=== PATIENT | male | born 1955 | race Caucasian/White ===

== ENCOUNTER 2022-02-22 02:27 | Emergency (ER) | payer OTHER, SELFPAY ==
[2022-02-22 02:33] VITALS: BP 131/58; PULSE 83; RESP 14; TEMP 35.5; O2SAT 95; BMI 27.4
--- NOTE | 2022-02-22 02:36 | ED_ITS ---
HPI - Overdose <DO Aki White Last Filed: 02/23/22 22:02> General Chief Complaint: Toxicology Problem Stated Complaint: Toxicology Time Seen by Provider: 02/22/22 02:34 Source: EMS Mode of arrival: EMS History of Present Illness HPI Narrative: 67-year-old male nonsmoker without any significant medical history presents by EMS for evaluation of dizziness,, weakness and persistent vomiting. He has on occasion taken THC to help with nausea and vomiting and had accidentally taken a significantly larger dose than he would anticipated tonight. It sounds like he took an entire syringe of a THC concentrate at 73% which medics state is likely 1000 mg. He did this 4 hours prior to his arrival. He has no suicidal or homicidal ideation. He denies any other ingestion. He is guarding his airway, alert and oriented. He has no chest pain or shortness of breath. Related Data Allergies Allergy/AdvReac Type Severity Reaction Status Date / Time Penicillins Allergy Verified 02/22/22 03:54 Review of Systems <DO Aki White Last Filed: 02/23/22 22:02> Review of Systems Narrative: GENERAL: See HPI HEENT: Denies sinus pain, ear pain, sore throat, difficulty swallowing, dizziness. RESPIRATORY: Denies dyspnea, cough, wheezing, hemoptysis, sputum. CARDIOVASCULAR: Denies chest pain, palpitations, orthopnea, edema, GASTROINTESTINAL: See HPI : Denies dysuria, frequency, incontinence, hematuria, urinary retention. MUSCULOSKELETAL: denies weakness, joint pain, or bony pain SKIN: Denies rash, skin lesions, or other NEUROLOGIC: Denies weakness, headache, numbness, change in speech, confusion, seizures, incoordination. PSYCHIATRIC: No concerning psychosocial issues. 12 point review of systems is negative except for those stated above Patient History <DO Aki White Last Filed: 02/23/22 22:02> alcohol intake frequency: holidays/special occasions only Substance Use Type: marijuana Exam <DO Aki White Last Filed: 02/23/22 22:02> Narrative Exam Narrative: GENERAL: [67] year old patient appears stated age. Well-developed patient, in mild distress. Obviously feeling unwell, holding an emesis bag. Sluggish responses though accurate in his answers, regretful, states this is accidental, denies any intent to harm, no difficulty breathing or managing secretions HEAD: Atraumatic. Normocephalic. EYES: Pupils equal round and reactive. Extraocular motions intact. No scleral icterus. No injection or drainage. ENT: Nose without bleeding, purulent drainage. Throat without erythema, tonsillar hypertrophy or exudate. Airway patent. NECK: Trachea midline. Non tender CARDIOVASCULAR: Regular rate and rhythm without murmurs, gallops, or rubs. RESPIRATORY: Clear to auscultation. Breath sounds equal bilaterally. No wheezes, rales, or rhonchi. GASTROINTESTINAL: Abdomen soft, non-tender, nondistended. EXTREMITIES: No edema or joint tenderness. BACK: Nontender without deformity or crepitance. No flank tenderness. NEURO: AOx3. SKIN: No rash or erythema of visible areas Initial Vital Signs Initial Vital Signs: Vital Signs Temperature 96 F L 02/22/22 02:33 Pulse Rate 83 02/22/22 02:33 Respiratory Rate 14 02/22/22 02:33 Blood Pressure 131/58 L 02/22/22 02:33 Pulse Oximetry 95 02/22/22 02:33 Oxygen Delivery Method 02/22/22 02:33 <Liana Hilliard, DO - Last Filed: 02/22/22 08:39> Initial Vital Signs Initial Vital Signs: Vital Signs Temperature 96 F L 02/22/22 02:33 Pulse Rate 83 02/22/22 02:33 Respiratory Rate 14 02/22/22 02:33 Blood Pressure 131/58 L 02/22/22 02:33 Pulse Oximetry 95 02/22/22 02:33 Oxygen Delivery Method 02/22/22 02:33 Course <Maurizio Nolan, DO - Last Filed: 02/23/22 22:02> Orders Ordered: Discontinued Medications Sodium Chloride (Normal Saline 0.9%) 1,000 mls @ 1,000 mls/hr IV BOLUS ONE Stop: 02/22/22 03:33 Last Infusion: 02/22/22 04:57 Dose: 0 mls/hr Documented By: Admin: 02/22/22 02:58 Dose: 1,000 mls/hr Documented By: GERARDO Ondansetron HCl (Ondansetron 4 Mg/2 Ml Inj) 4 mg IV NOW ONE Stop: 02/22/22 02:35 Last Admin: 02/22/22 02:59 Dose: 4 mg Documented By: GERARDO Pantoprazole Sodium (Pantoprazole 40 Mg Vial) 40 mg IV NOW ONE Stop: 02/22/22 03:23 Last Admin: 02/22/22 04:08 Dose: 40 mg Documented By: GERARDO Vital Signs Vital signs: Vital Signs - 8 hr 02/22/22 02:33 02/22/22 02:42 02/22/22 02:56 Temperature 96 F L Pulse Rate 83 78 Respiratory Rate 14 12 Blood Pressure 131/58 L 118/63 Pulse Oximetry 95 95 Oxygen Delivery Method Room Air 02/22/22 02:56 02/22/22 03:00 02/22/22 03:00 Temperature Pulse Rate 75 74 Respiratory Rate 12 13 Blood Pressure 116/64 Pulse Oximetry 98 98 Oxygen Delivery Method 02/22/22 03:30 02/22/22 03:30 Temperature Pulse Rate 79 Respiratory Rate 12 Blood Pressure 128/72 Pulse Oximetry 98 Oxygen Delivery Method <Liana Hilliard, - Last Filed: 02/22/22 08:39> Orders Ordered: Discontinued Medications Sodium Chloride (Normal Saline 0.9%) 1,000 mls @ 1,000 mls/hr IV BOLUS ONE Stop: 02/22/22 03:33 Last Infusion: 02/22/22 04:57 Dose: 0 mls/hr Documented By: Admin: 02/22/22 02:58 Dose: 1,000 mls/hr Documented By: GERARDO Ondansetron HCl (Ondansetron 4 Mg/2 Ml Inj) 4 mg IV NOW ONE Stop: 02/22/22 02:35 Last Admin: 02/22/22 02:59 Dose: 4 mg Documented By: GERARDO Pantoprazole Sodium (Pantoprazole 40 Mg Vial) 40 mg IV NOW ONE Stop: 02/22/22 03:23 Last Admin: 02/22/22 04:08 Dose: 40 mg Documented By: GERARDO Vital Signs Vital signs: Vital Signs - 8 hr 02/22/22 02:33 02/22/22 02:42 02/22/22 02:56 Temperature 96 F L Pulse Rate 83 78 Respiratory Rate 14 12 Blood Pressure 131/58 L 118/63 Pulse Oximetry 95 95 Oxygen Delivery Method Room Air 02/22/22 02:56 02/22/22 03:00 02/22/22 03:00 Temperature Pulse Rate 75 74 Respiratory Rate 12 13 Blood Pressure 116/64 Pulse Oximetry 98 98 Oxygen Delivery Method 02/22/22 03:30 02/22/22 03:30 Temperature Pulse Rate 79 Respiratory Rate 12 Blood Pressure 128/72 Pulse Oximetry 98 Oxygen Delivery Method MDM - Overdose <Maurizio Nolan, - Last Filed: 02/23/22 22:02> Lab Data Result diagrams: 02/22/22 02:45 02/22/22 02:45 Labs: Lab Results 02/22/22 02/22/22 02/22/22 Range/Units 02:45 02:45 03:00 WBC 11.6 H (4.5-11.0) X10^3/uL RBC 4.29 L (4.5-5.9) X10^6/uL Hgb 13.7 (13.5-17.5) g/dL Hct 39.6 L (41-53) % MCV 92.2 (80-100) fL MCH 32.0 (26-34) PG MCHC 34.7 (30-36) % RDW 12.5 (11.6-14.8) % Plt Count 319 (150-400) X10^3/uL Neut % (Auto) 80.4 H (50-75) % Lymph % (Auto) 13.5 L (25-40) % Bacon % (Auto) 5.4 (3-14) % Eos % (Auto) 0.1 L (2-4) % Baso % (Auto) 0.6 (0-2) % Neut # (Auto) 9300 H (7846-2043) /uL Lymph # (Auto) 1600 (7647-0456) /uL Bacon # (Auto) 600 (0-900) /uL Eos # (Auto) 0 (0-450) /uL Baso # (Auto) 100 (0-100) /uL Sodium 140 (137-145) mmol/L Potassium 3.7 (3.4-5.1) mmol/L Chloride 101 (98-107) mmol/L Carbon Dioxide 22 (22-32) mmol/L BUN 21 H (9-20) mg/dL Creatinine 1.03 (0.66-1.25) mg/dL Estimated GFR > 60 (>60) mL/min BUN/Creatinine Ratio 20.4 (6-22) Glucose 167 H (80-110) mg/dL Calcium 7.9 L (8.4-10.2) mg/dL Magnesium 2.0 (1.6-2.3) mg/dL Total Bilirubin 0.3 (0.2-1.3) mg/dL AST 27 (17-59) IU/L ALT 31 (<50) IU/L Alkaline Phosphatase 52 (38-126) U/L Total Protein 7.7 (6.3-8.2) g/dL Albumin 4.3 (3.5-5.0) g/dL Globulin 3.4 (1.7-4.1) g/dL Albumin/Globulin Ratio 1.3 (1.0-2.8) SARS-CoV-2 (PCR) Negative (Negative) Urine Dip Bedside Urine Glucose Negative Bedside Urine Bilirubin - Negative Bedside Urine Ketone - Negative Urine Specific Union 1.015 Bedside Urine Occult Blood - Negative Bedside Urine pH 6.0 Bedside Urine Protein - Negative Bedside Urine Urobilinogen - Negative Bedside Urine Nitrite - Negative Bedside Urine Leukocytes - Negative Esterase <Liana Hilliard, DO - Last Filed: 02/22/22 08:39> Lab Data Labs: Lab Results 02/22/22 02/22/22 02/22/22 Range/Units 02:45 02:45 03:00 WBC 11.6 H (4.5-11.0) X10^3/uL RBC 4.29 L (4.5-5.9) X10^6/uL Hgb 13.7 (13.5-17.5) g/dL Hct 39.6 L (41-53) % MCV 92.2 (80-100) fL MCH 32.0 (26-34) PG MCHC 34.7 (30-36) % RDW 12.5 (11.6-14.8) % Plt Count 319 (150-400) X10^3/uL Neut % (Auto) 80.4 H (50-75) % Lymph % (Auto) 13.5 L (25-40) % Bacon % (Auto) 5.4 (3-14) % Eos % (Auto) 0.1 L (2-4) % Baso % (Auto) 0.6 (0-2) % Neut # (Auto) 9300 H (1480-2430) /uL Lymph # (Auto) 1600 (5074-2110) /uL Bacon # (Auto) 600 (0-900) /uL Eos # (Auto) 0 (0-450) /uL Baso # (Auto) 100 (0-100) /uL Sodium 140 (137-145) mmol/L Potassium 3.7 (3.4-5.1) mmol/L Chloride 101 (98-107) mmol/L Carbon Dioxide 22 (22-32) mmol/L BUN 21 H (9-20) mg/dL Creatinine 1.03 (0.66-1.25) mg/dL Estimated GFR > 60 (>60) mL/min BUN/Creatinine Ratio 20.4 (6-22) Glucose 167 H (80-110) mg/dL Calcium 7.9 L (8.4-10.2) mg/dL Magnesium 2.0 (1.6-2.3) mg/dL Total Bilirubin 0.3 (0.2-1.3) mg/dL AST 27 (17-59) IU/L ALT 31 (<50) IU/L Alkaline Phosphatase 52 (38-126) U/L Total Protein 7.7 (6.3-8.2) g/dL Albumin 4.3 (3.5-5.0) g/dL Globulin 3.4 (1.7-4.1) g/dL Albumin/Globulin Ratio 1.3 (1.0-2.8) SARS-CoV-2 (PCR) Negative (Negative) Urine Dip Bedside Urine Glucose Negative Bedside Urine Bilirubin - Negative Bedside Urine Ketone - Negative Urine Specific Union 1.015 Bedside Urine Occult Blood - Negative Bedside Urine pH 6.0 Bedside Urine Protein - Negative Bedside Urine Urobilinogen - Negative Bedside Urine Nitrite - Negative Bedside Urine Leukocytes - Negative Esterase MDM Narrative Medical decision making narrative: [place] 02/22/22 0813: This is a 67-year-old male who accidentally ingested a large amount of THC and liquid form. Patient states he misread the directions there was a plunger and he gave himself too much. He has continued to feel improved throughout the night and into this morning. He is now tolerating orals he was not able to earlier. Patient states that he would like to try to ambulate to the bathroom and if able to do so would like to be discharged home. Patient is hemodynamically stable, mentation is appropriate. Ingestion was not intentional he has no suicidal homicidal ideation. Patient is ambulating without issue since continuing to feel significantly better. Naloxone at Discharge Patient criteria for naloxone at discharge: Not Appropriate for pt Reason patient is not provided naloxone?: Not Appropriate for pt Discharge Plan Departure Patient Disposition: Home Clinical Impression: Accidental overdose Activity Restrictions/Additional Instructions: I hope you continue to feel better. I would avoid using any THC for the next 24 hours in any form. Please return for new or worsening symptoms, lightheadedness, passing out, persistent vomiting, new chest pain, shortness of breath, or other new or concerning symptoms. Visit Report Forms: Patient Portal/API
[2022-02-22 02:42] VITALS: PULSE 78; RESP 12; O2SAT 95
[2022-02-22 02:56] VITALS: BP 118/63; PULSE 75; RESP 12; O2SAT 98
[2022-02-22 02:56] LABS: Add Manual Diff / Slide Review NO; Basophils Absolute Auto 100 /uL (0-100); Basophils Percent Auto 0.6 % (0-2); Eosinophils Absolute Auto 0 /uL (0-450); Eosinophils Percent Auto 0.1 % (2-4); Hematocrit 39.6 % (41-53); Hemoglobin 13.7 g/dL (13.5-17.5); Lymphocytes Absolute Auto 1600 /uL (1100-4500); Lymphocytes Percent Auto 13.5 % (25-40); Mean Corpuscular HGB Conc 34.7 % (30-36); Mean Corpuscular Volume 92.2 fL (80-100); Monocytes Absolute Auto 600 /uL (0-900); Monocytes Percent Auto 5.4 % (3-14); Neutrophils Absolute Auto 9300 /uL (1500-7000); Neutrophils Percent Auto 80.4 % (50-75); Platelet Count 319 X10^3/uL (150-400); Red Blood Cell Count 4.29 X10^6/uL (4.5-5.9); Red Cell Distribution Width 12.5 % (11.6-14.8); White Blood Cell Count 11.6 X10^3/uL (4.5-11.0)
[2022-02-22] MEDS: SODIUM CHLORIDE 0.9% 1,000 ML 1000 ML IV (02:58)
[2022-02-22] MEDS: ONDANSETRON 4 MG/2 ML INJ IV (02:59)
[2022-02-22 03:00] VITALS: BP 116/64; PULSE 74; RESP 13; O2SAT 98
[2022-02-22 03:07] LABS: Alanine Aminotransferase 31 IU/L (<50); Albumin 4.3 g/dL (3.5-5.0); Albumin Globulin Ratio 1.3 (1.0-2.8); Alkaline Phosphatase 52 U/L (38-126); Aspartate Aminotransferase 27 IU/L (17-59); BUN Creatinine Ratio 20.4 (6-22); Bilirubin Total 0.3 mg/dL (0.2-1.3); Blood Urea Nitrogen 21 mg/dL (9-20); Calcium 7.9 mg/dL (8.4-10.2); Carbon Dioxide 22 mmol/L (22-32); Chloride 101 mmol/L (98-107); Estimated Glomerular Filt Rate > 60 mL/min (>60); Globulin 3.4 g/dL (1.7-4.1); Glucose 167 mg/dL (80-110); HEMOLYSIS < 15 (0-50); Potassium 3.7 mmol/L (3.4-5.1); Sodium 140 mmol/L (137-145); Total Protein 7.7 g/dL (6.3-8.2)
[2022-02-22 03:25] LABS: COVID19 -Nasal RAPID Negative (Negative)
[2022-02-22 03:30] VITALS: BP 128/72; PULSE 79; RESP 12; O2SAT 98
[2022-02-22] MEDS: PANTOPRAZOLE 40 MG VIAL IV (04:08)
[2022-02-22 09:00] VITALS: BP 110/60; PULSE 74; RESP 18; O2SAT 98
== END 2022-02-22 09:00 | disposition home or self-care (01) ==
PROVIDERS: Emergency Medicine; Emergency Provider Emergency Medicine
DX: T40.711A Poisoning by cannabis, accidental (unintentional), initial encounter (principal); R07.9 Chest pain, unspecified; Z20.822 Contact with and (suspected) exposure to COVID-19
CPT/HCPCS: 36415; 80053; 81003; 83735; 85025; 87635; 93005; 93010; 96361; 96374; 96375; 99284; C9803; C9113; J2405